=== PATIENT | female | born 1980 | race Caucasian/White ===

== ENCOUNTER 2017-01-27 08:16 | Day surgery (SDC) | payer MEDICAID ==
[~2017-01-27 08:16] MED LIST: ANCEF/STERILE WATER 2 GM/20 ML IV NR; LACTATED RINGERS 1,000 ML IV SCH; PEPCID PO NR; VERSED IV NR
--- NOTE | 2017-01-27 09:24 | Anesthesia Consultation ---
Anesthesia Consult and Med Hx Date of service: 01/27/17 - Airway Anesthetic Teeth Evaluation: Good ROM Head & Neck: Adequate Mental/Hyoid Distance: Adequate Mallampati Class: Class II Intubation Access Assessment: Good - Pulmonary Exam CTA: Yes - Cardiac Exam Cardiac Exam: RRR - Pre-Operative Health Status ASA Pre-Surgery Classification: ASA1 Proposed Anesthetic Plan: General - Pulmonary Hx Smoking: No Hx Sleep Apnea: No (DARYN PRE SCREEN NEGATIVE) - Cardiovascular System Hx Hypertension: No - Other Systems Hx Cancer: No
[2017-01-27] MEDS ORDERED: ZOFRAN IV PRN (09:25)
[2017-01-27] MEDS ORDERED: NORCO 5/325 PO PRN (09:25)
--- NOTE | 2017-01-27 09:25 | Anesthesia Day of Surgery ---
Anesthesia Day of Surgery - Day of Surgery Patient Examined: Yes Patient H&P Reviewed: Yes Patient is NPO: Yes
[2017-01-27] MEDS ORDERED: XYLOCAINE MPF 2% ONE (09:45)
[2017-01-27 09:48] LABS: Hemoglobin 13.9 gm/dl (10.1-14.3)
[2017-01-27] MEDS ORDERED: SUBLIMAZE ONE (09:59)
[2017-01-27] MEDS ORDERED: DIPRIVAN 10 MG/ML IV ONE (09:59)
[2017-01-27] MEDS: DILAUDID IV PRN ×2 (11:03→11:15)
--- NOTE | 2017-01-27 11:51 | Operative Report ---
SERVICE: Plastic surgery. PREOPERATIVE DIAGNOSIS: Benign neoplasm, right upper quadrant of the abdomen, 17 cm. POSTOPERATIVE DIAGNOSIS: Benign neoplasm, right upper quadrant of the abdomen, 17 cm. PROCEDURE: 1. Excision, benign neoplasm of right upper quadrant of abdomen, 17 cm. 2. Complex closure of right abdomen, 12.5 cm. SURGEON: Wiliam Wallace MD ENDOSCOPY SPECIALTY TECHNICIAN: Oni Car CSA. FINDINGS: Large soft tissue tumor comprised of adipose tissue extending down to the fascia, well circumscribed. DESCRIPTION OF PROCEDURE: The patient was brought to the operating room and placed on the table in supine position. Following administration of general anesthesia, the abdomen was prepped with a Betadine solution, draped in usual sterile manner. A #10 blade scalpel was used to make a transverse skin incision overlying the mass, deepened through subcutaneous fat down to the capsule of the tumor, which was circumferentially excised and sent to pathology as specimen. Hemostasis was controlled using electrocautery. A 10-mm Samir drain was placed followed by closure in layers using interrupted and running subcuticular 2-0 Monocryl sutures. Prior to closure, redundant skin was excised from the ends of the incision. Mastisol, Steri-Strips, and sterile dressings applied. The patient tolerated the procedure well and returned to recovery room in stable condition. JOB# [id number] KALPANAW/KIMBERLY VIDES
[2017-01-27 12:18] VITALS: BP 109/67
--- NOTE | 2017-01-27 12:53 | Post Anesthesia Evaluation ---
- Post Anesthesia Evaluation Patient Participated: Yes Airway Patent: Yes Stable Respiratory Function: Yes Temp > 96.8F: Yes Pain Manageable: Yes Adequeate Hydration: Yes Anesthesia Complications: No Block Receding Appropriately: Not Applicable
== END 2017-01-27 12:40 | disposition home or self-care (01) ==
LOC: OR 08:16
PROVIDERS: ATTEND Plastic Surgery
DX: D21.4 Benign neoplasm of connective and other soft tissue of abdomen (principal); Z80.1 Family history of malignant neoplasm of trachea, bronchus and lung; Z82.49 Family history of ischemic heart disease and other diseases of the circulatory system
CPT/HCPCS: 13101; 13102; 22903; 36415; 81025; 85014; 85018; 88304; J0690; J1170; J2250; J2704; J3010; J7120

== ENCOUNTER 2017-03-09 16:05 | Inpatient (IN) | payer MEDICAID ==
[2017-03-09] MEDS ORDERED: ZOSYN/NS 4.5GM/100ML 4.5 GM/100 ML VIAL IV ONE (19:59)
[2017-03-09] MEDS ORDERED: NACL 0.9% 1000 ML 1,000 ML IV ONE (19:59)
[2017-03-09] MEDS ORDERED: VANCOMYCIN/NS 1 GM/250 ML 1 GM/250 ML BAG IV ONE (19:59)
[2017-03-09] MEDS ORDERED: MORPHINE IV ONE (19:59)
--- NOTE | 2017-03-09 20:06 | Emergency Department Report ---
ED Abdominal Pain HPI - General Chief Complaint: Abdominal Pain Stated Complaint: POST SURGERY ISSUES Time Seen by Provider: 03/09/17 19:46 Source: patient Mode of arrival: Ambulatory Limitations: No Limitations - History of Present Illness Initial Comments: Patient is a 36-year-old female presenting to the ER with right-sided abdominal pain and drainage. Patient reports she had a lipoma resected at the end of January and still has a FRANCESCO drain in place. She has seen her surgeon 2-3 times for follow-up patient is still draining greater than 50 mL's of fluid via her FRANCESCO drain. However for the past 2 days she's had increased swelling redness and pus drainage from around the FRANCESCO site. Associated tactile fevers and chills patient has not taken any meds for this and has not seen her surgeon since this has started. Otherwise no headaches, nausea, vomiting, shortness of breath, chest pain, any other pain, travel, or sick contacts. - Related Data Home Medications Medication Instructions Recorded Confirmed Last Taken No Known Home Medications [No 01/21/17 01/21/17 Unknown Reported Home Medications] Allergies Allergy/AdvReac Type Severity Reaction Status Date / Time No Known Allergies Allergy Verified 01/21/17 09:18 ED Review of Systems ROS: Stated complaint: POST SURGERY ISSUES Other details as noted in HPI Comment: All other systems reviewed and negative ED Past Medical Hx - Past Medical History Previous Medical History?: No Hx Hypertension: No - Surgical History Past Surgical History?: Yes Additional Surgical History: Lipoma - Social History Smoking Status: Never Smoker Substance Use Type: None - Medications Home Medications: Home Medications Medication Instructions Recorded Confirmed Last Taken Type No Known Home Medications [No 01/21/17 01/21/17 Unknown History Reported Home Medications] ED Physical Exam - General Limitations: No Limitations General appearance: alert, in no apparent distress - Head Head exam: Present: atraumatic, normocephalic - Eye Eye exam: Present: normal appearance - ENT ENT exam: Present: mucous membranes moist - Neck Neck exam: Present: normal inspection - Respiratory Respiratory exam: Present: normal lung sounds bilaterally. Absent: respiratory distress - Cardiovascular Cardiovascular Exam: Present: regular rate, normal rhythm. Absent: systolic murmur, diastolic murmur, rubs, gallop - GI/Abdominal GI/Abdominal exam: Present: soft, tenderness, other (R sided FRANCESCO drain in place, moderate swelling around the FRANCESCO insertion in the R lateral upper quadrant, pus drainage around the FRANCESCO drain insertion site) - Extremities Exam Extremities exam: Present: normal inspection - Back Exam Back exam: Present: normal inspection - Neurological Exam Neurological exam: Present: alert, oriented X3 - Skin Skin exam: Present: erythema (around the FRANCESCO drain site) ED Course Vital Signs 03/09/17 03/09/17 03/09/17 16:19 22:23 22:33 Temperature 98.5 F 98.3 F Pulse Rate 97 H 78 Respiratory 16 12 Rate Blood Pressure 125/80 110/74 Blood Pressure 128/78 [Left] O2 Sat by Pulse 100 99 Oximetry 03/09/17 03/10/17 03/10/17 22:34 00:25 00:30 Temperature Pulse Rate Respiratory 12 Rate Blood Pressure 111/66 104/69 Blood Pressure [Left] O2 Sat by Pulse 99 Oximetry 03/10/17 03/10/17 00:45 00:54 Temperature 98.3 F Pulse Rate 78 Respiratory 12 Rate Blood Pressure 107/67 Blood Pressure [Left] O2 Sat by Pulse 98 Oximetry ED Medical Decision Making - Lab Data Result diagrams: 03/09/17 20:25 03/09/17 20:25 - Radiology Data Radiology results: report reviewed - Medical Decision Making Ordered vancomycin 1 g IVPB, Zosyn 4.5 g IVPB for suspected cellulitis and possible abscess formation. Patient's CT abdomen and pelvis reviewed there is a large fluid collection in the subcutaneous fat of the right lateral abdominal wall. This measures approximately 11.4 cm in width by 3.7 cm into by 10 point centimeters in length. There is a Frandy-Rodrigez drain present within the fluid collection. Pain scale history and should be verified. The fluid collection could represent an abscess, sterile seroma, or liquefied hematoma. 00:[address] Enedelia beck, he recommends, the FRANCESCO drain be taken out tomorrow and patient go to IR for pigtail catheter. This was relayed to the admitting hospitalist, Dr. Hernadez 0030:Called to the bedside by the nurse, patient had vancomycin going wide open and it was not on a pump. Pt was red in the face and across the chest with complaints of feeling hot and itchy. The vancomycin was slowed down, patient was given benadryl 50mg and solumedrol 125mg IVP. I did discuss with the nurse Davi, that in the future Vancomycin is an antibiotic that MUST be run slowly on the pump to avoid red man syndrome and to truly distinguish this from an allergic reaction. He understood. I evaluated the patient approximately 30 minutes later and her symptoms has resolved. The vancomycin was resumed at its intended rate. Will continue to monitor Critical care attestation.: If time is entered above; I have spent that time in minutes in the direct care of this critically ill patient, excluding procedure time. ED Disposition Clinical Impression: Abdominal wall abscess at site of surgical wound Disposition: OP ADMITTED IP TO THIS HOSP Is pt being admited?: Yes Does the pt Need Aspirin: No Condition: Stable
[2017-03-09] MEDS ORDERED: NACL ONE (20:44)
[2017-03-09 20:51] LABS: Basophils % (Auto) 0.4 % (0.0-1.8); Eosinophils % (Auto) 0.1 % (0.0-4.3); Hematocrit 40.8 % (30.3-42.9); Hemoglobin 13.5 gm/dl (10.1-14.3); Mean Corpuscular HGB Conc 33 % (30-34); Mean Corpuscular Hemoglobin 28 pg (28-32); Mean Corpuscular Volume 84 fl (79-97); Platelet Count 200 K/mm3 (140-440); Red Blood Count 4.87 M/mm3 (3.65-5.03); Red Cell Distribution Width 13.5 % (13.2-15.2); White Blood Count 13.7 K/mm3 (4.5-11.0)
[2017-03-09 21:01] LABS: INR 1.12 (0.87-1.13)
[2017-03-09 21:03] LABS: Alanine Aminotransferase 11 units/L (7-56); Albumin 3.9 g/dL (3.9-5); Albumin/Globulin Ratio 1.3 %; Alkaline Phosphatase 50 units/L (35-129); Anion Gap 14 mmol/L; Bilirubin,Total 0.6 mg/dL (0.1-1.2); Blood Urea Nitrogen 8 mg/dL (7-17); Calcium 9.2 mg/dL (8.4-10.2); Carbon Dioxide 27 mmol/L (22-30); Chloride 97.6 mmol/L (98-107); Glucose 99 mg/dL (65-100); Potassium 4.1 mmol/L (3.6-5.0); Sodium 134 mmol/L (137-145)
[2017-03-09 21:11] LABS: Bilirubin,Direct < 0.2 mg/dL (0-0.2); Bilirubin,Indirect 0.4 mg/dL
[2017-03-09] MEDS ORDERED: MORPHINE ONE (22:11)
--- NOTE | 2017-03-09 23:42 | Cat Scan Report ---
FINAL REPORT PROCEDURE: CT abdomen and pelvis with contrast. TECHNIQUE: Computerized axial tomography of the abdomen and pelvis was performed after the IV injection of iodinated nonionic contrast. HISTORY: Abdominal pain, abscess. COMPARISON: No prior studies are available for comparison. FINDINGS: The lung bases are clear. There are no pleural effusions. The heart size is normal. The liver, spleen and pancreas appear normal. The gallbladder is present. The adrenal glands are not enlarged. Both kidneys appear normal in size and configuration. The abdominal aorta has a normal caliber. There is no retroperitoneal adenopathy. A normal appendix is visible. The bladder, uterus and adnexal regions are unremarkable. There is an IUD within the uterus. There is a large fluid collection in the subcutaneous fat of the right lateral abdominal wall. This measures approximately 11.4 centimeters in width by 3.7 centimeters in depth by 10.7 centimeters in length. There is a Frandy-Rodrigez type drain present within the fluid collection. Patency of this drain should be verified. The fluid collection could represent an abscess, a sterile seroma or a liquefied hematoma. Clinical correlation is recommended. The regional skeleton appears intact. IMPRESSION: Large right lateral abdominal wall fluid collection despite presence of Frandy-Rodrigez drain. Please see above comments.
[2017-03-10] MEDS ORDERED: PEPCID IV ONE (00:23)
[2017-03-10] MEDS ORDERED: BENADRYL ONE (00:24)
[2017-03-10] MEDS ORDERED: BENADRYL IV ONE (00:32)
[2017-03-10] MEDS ORDERED: MILK OF MAGNESIA PO PRN (01:33)
[2017-03-10] MEDS ORDERED: DULCOLAX PR PRN (01:33)
[2017-03-10] MEDS ORDERED: MORPHINE IV PRN (01:33)
[2017-03-10] MEDS ORDERED: ZOFRAN IV PRN (01:33)
[2017-03-10] MEDS ORDERED: TYLENOL PO PRN (01:33)
--- NOTE | 2017-03-10 01:35 | History and Physical Report ---
History of Present Illness Date of examination: 03/10/17 History of present illness: 36-year-old man with a no medical history comes emergency room with complaints of increased drainage from her FRANCESCO tube. Patient is status post resection of a lipoma on January 27, a drain was put in place. He has follow-up with the surgeon who told her to discontinue drain if the drainage was less than 15 ml consecutive days. Yesterday morning she woke up she had increased drainage, she removed more than 60 ml initially, drainage is purulent. Patient developed itching after vancomycin administration, she was given Benadryl and steroids Patient denies chest pain, palpitation, shortness of breath, cough, abdominal pain, hematochezia, dysuria, frequency, focal weakness, dysarthria, fever chills , polydipsia polyuria, hot or cold intolerance, easy bruisability, or rash or bleeding from mucosal membrane, rhinorrhea, epistaxis, earache, tinnitus, blurry vision, eye discharge, anxiety, depression. Other review of systems negative PAST SURGICAL HISTORY: Lipoma resection SOCIAL HISTORY: No alcohol, tobacco, drugs FAMILY HISTORY: Hypertension Medications and Allergies Allergies Allergy/AdvReac Type Severity Reaction Status Date / Time No Known Allergies Allergy Verified 01/21/17 09:18 Home Medications Medication Instructions Recorded Confirmed Last Taken Type No Known Home Medications [No 01/21/17 03/10/17 Unknown History Reported Home Medications] Exam - Physical Exam Narrative exam: Gen. appearance: Patient lying in bed, no apparent distress HEENT: Normocephalic, atraumatic, pupils equally round and reactive to light, extraocular movement intact, and no sclericterus,. No JVD or thyromegaly or nodule,neck supple, no carotid bruit ,mucous membranes moist, no exudate or erythema Heart: S1, S2, regular rate and rhythm Lungs: Clear to auscultation bilaterally, breathing comfortable Abdomen: Positive bowel sounds, nontender, drain in right upper quadrant, and no surrounding erythema ,nondistended, no organomegaly Extremity: No edema, cyanosis, clubbing Skin: No rash, nodules, warm, dry Neuro: Oriented 3, cranial nerves II-12 intact, speech is fluent, motor and sensory intact - Constitutional Vitals: Temp Pulse Resp BP Pulse Ox 98.3 F 78 12 100/63 98 03/10/17 00:54 03/10/17 00:54 03/10/17 00:54 03/10/17 01:15 03/10/17 00:54 Results - Labs CBC & Chem 7: 03/09/17 20:25 03/09/17 20:25 Labs: Abnormal lab results 03/09/17 03/09/17 Range/Units 20:25 20:25 WBC 13.7 H (4.5-11.0) K/mm3 Seg Neutrophils % 74.5 H (40.0-70.0) % Seg Neutrophils # 10.2 H (1.8-7.7) K/mm3 Sodium 134 L (137-145) mmol/L Chloride 97.6 L (98-107) mmol/L Creatinine 0.5 L (0.7-1.2) mg/dL - Imaging and Cardiology CT scan - abdomen: report reviewed CT scan - pelvis: report reviewed Assessment and Plan Possible abscess Status post lipoma resection Admit to medicine status post Zosyn and vancomycin in the emergency room, continue Zosyn Consult interventional radiology for peak tail cath per Dr. Patel, surgeon Start IV morphine, DVT prophylaxis
[2017-03-10] MEDS ORDERED: NACL 0.9% 1000 ML 1,000 ML IV SCH (02:00)
[2017-03-10] MEDS: ZOSYN/NS 4.5GM/100ML 4.5 GM/100 ML VIAL IV SCH ×3 (05:46→18:04)
--- NOTE | 2017-03-10 07:43 | Admit Criteria Form ---
Admission Criteria Documentation: CELLULITIS Clinical Indications for Admission to Inpatient Care (Place 'X' for any and all applicable criteria): Admission is indicated for ANY ONE of the following(1)(2)(3)(4)(5): [ ]I. Limb-threatening infection [ ]II. High-risk comorbid condition as indicated by ANY ONE of the following: [ ]a) Uncontrolled diabetes (eg, HbA1c greater than 10% (0.1)) [ ]b) Cirrhosis [ ]c) Neutropenia [ ]d) Asplenia [ ]e) Immunosuppression [ ]f) Symptomatic heart failure [ ]III. Failure of outpatient therapy as indicated by ALL of the following: [ ]a) Progression or no improvement after adequate trial (minimum of 48 hours, with longer period for stable lower extremity infection) [ ]b) Adequate antibiotic regimen as indicated by use of ANY ONE of the following: [ ]i) First-generation cephalosporin (e.g., cephalexin) [ ]ii) Antistaphylococcal penicillin (e.g., dicloxacillin) [ ]iii) Penicillin-allergic patient regimen (clindamycin, extended-spectrum fluoroquinolone, or doxycycline) [ ]iv) Resistant organism (eg, methicillin-resistant Staphylococcus aureus) regimen (6) [ ]c) Outpatient intravenous therapy regimen is not appropriate due to ANY ONE of the following. (7)(8)(9)(10): [ ]i) It was tried and was not successful (eg, progression of infection). [ ]ii) It is not available or cannot be arranged in a clinically appropriate time frame (e.g., the next day). [ ]iii) Clinical presentation (eg, acuity of infection, rapidity of progression, confirmed or suspected bacteremia) is judged to require ALL of the following: [ ]1) Immediate initiation of intravenous therapy ( eg, cannot wait for next day) [ ]2) Intensity of patient monitoring and observation (eg, vital sign measurement, checks for infection progression) that cannot be provided at other than inpatient level of care [ ]IV. Mental status changes [ ]V. Bacteremia [ ]. Hemodynamic instability [ ]VII. Suspected necrotizing soft tissue infection (e.g., gas in tissue)(11)( 12) [ ]VIII. Orbital infection (13)(14) [X]IX. Associated surgical procedure (e.g., abscess drainage, debridement) not amenable to outpatient, emergency department, or observation care [ ]X. Cutaneous gangrene [ ]XI. High fever (temperature greater than 39.5 degrees C (103.1 degrees F) (oral)) not responsive to outpatient, emergency department, or observation care therapy [ ]XIII. Inpatient admission required rather than observation care (Also use Cellulitis: Observation Care as appropriate) because of ANY ONE of the following : [ ]a) Periorbital or perineal infection that is severe or worsening [ ]b) Severe pain requiring acute inpatient management [ ]c) IV fluid to replace significant ongoing (e.g., for over 24 hours) losses (greater than 3L/m2 per day) [ ]d) Compartment syndrome monitoring (17) [ ]e) Strict or protective (eg, laminar flow) isolation [ ]f) Urgent debridement or skin grafting [ ]g) Bone or joint debridement [ ]h) Immediate inpatient surgery [ ]i) Other condition, treatment or monitoring requiring inpatient admission Extended stay beyond goal length of stay may be needed for (1)(18): [ ]a) Necrotizing soft tissue infection or fasciitis [ ]b) Gram-negative infection [ ]c) Methicillin-resistant Staphylococcal aureus (MRSA) infection [ ]d) Peripheral venous insufficiency with cellulitis [ ]e) Extensive edema [ ]f) Sepsis or continued Hemodynamic instability [ ]g) Continued high fever or mental status change [ ]h) Bacteremia [ ]i) Active serious comorbid conditions ( eg, heart failure, renal insufficiency) The original [employer] content created by [employer] has been revised. The portions of the content which have been revised are identified through the use of italic text or in bold, and [facility] has neither reviewed nor approved the modified material. All other unmodified content is copyright [facility] Please see references footnoted in the original [facility] edition 2016 Admission Criteria Met: Yes
--- NOTE | 2017-03-10 10:07 | Progress Note ---
Assessment and Plan Assessment and plan: Pus discharge from the PJ tube S/P lipoma removal Subcutaneous abscess - Continue IV Zosyn - IR consulted for PEG tail placement prophylaxis - lovenox Disposition - continue inpatient care History Interval history: Patient stated she has discharge from the PJ tube. Hospitalist Physical - Physical exam Narrative exam: Not in cardiopulmonary distress. The patient appeared well nourished and normally developed. Vital signs as documented. Head exam is unremarkable. No scleral icterus . Neck is without jugular venous distension, thyromegaly, or carotid bruits. Lungs are clear to auscultation. Cardiac exam reveals regular rate and Rhythm. First and second heart sounds normal. No murmurs, rubs or gallops. Abdominal exam reveals clean dressing on the right flank area with a J-tube in place and some discharge. Extremities are nonedematous and both femoral and pedal pulses are normal. 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 No focal weakness. - Constitutional Vitals: Temp Pulse Resp BP Pulse Ox 98.6 F 78 18 96/61 96 03/10/17 04:00 03/10/17 04:00 03/10/17 04:00 03/10/17 04:00 03/10/17 04:00 Results - Labs CBC & Chem 7: 03/09/17 20:25 03/09/17 20:25 Labs: Laboratory Last Values WBC 13.7 K/mm3 (4.5-11.0) H 03/09/17 20:25 RBC 4.87 M/mm3 (3.65-5.03) 03/09/17 20:25 Hgb 13.5 gm/dl (10.1-14.3) 03/09/17 20:25 Hct 40.8 % (30.3-42.9) 03/09/17 20:25 MCV 84 fl (79-97) 03/09/17 20:25 MCH 28 pg (28-32) 03/09/17 20:25 MCHC 33 % (30-34) 03/09/17 20:25 RDW 13.5 % (13.2-15.2) 03/09/17 20:25 Plt Count 200 K/mm3 (140-440) 03/09/17 20:25 Lymph % (Auto) 18.8 % (13.4-35.0) 03/09/17 20:25 [place] % (Auto) 6.2 % (0.0-7.3) 03/09/17 20:25 Eos % (Auto) 0.1 % (0.0-4.3) 03/09/17 20:25 Baso % (Auto) 0.4 % (0.0-1.8) 03/09/17 20:25 Lymph # 2.6 K/mm3 (1.2-5.4) 03/09/17 20:25 [place] # 0.8 K/mm3 (0.0-0.8) 03/09/17 20:25 Eos # 0.0 K/mm3 (0.0-0.4) 03/09/17 20:25 Baso # 0.1 K/mm3 (0.0-0.1) 03/09/17 20:25 Seg Neutrophils % 74.5 % (40.0-70.0) H 03/09/17 20:25 Seg Neutrophils # 10.2 K/mm3 (1.8-7.7) H 03/09/17 20:25 PT 14.3 Sec. (12.2-14.9) 03/09/17 20:25 INR 1.12 (0.87-1.13) 03/09/17 20:25 Sodium 134 mmol/L (137-145) L 03/09/17 20:25 Potassium 4.1 mmol/L (3.6-5.0) 03/09/17 20:25 Chloride 97.6 mmol/L (98-107) L 03/09/17 20:25 Carbon Dioxide 27 mmol/L (22-30) 03/09/17 20:25 Anion Gap 14 mmol/L 03/09/17 20:25 BUN 8 mg/dL (7-17) 03/09/17 20:25 Creatinine 0.5 mg/dL (0.7-1.2) L 03/09/17 20:25 Estimated GFR > 60 ml/min 03/09/17 20:25 BUN/Creatinine Ratio 16.00 % 03/09/17 20:25 Glucose 99 mg/dL (65-100) 03/09/17 20:25 Calcium 9.2 mg/dL (8.4-10.2) 03/09/17 20:25 Total Bilirubin 0.6 mg/dL (0.1-1.2) 03/09/17 20:25 Direct Bilirubin < 0.2 mg/dL (0-0.2) 03/09/17 20:25 Indirect Bilirubin 0.4 mg/dL 03/09/17 20:25 AST 16 units/L (5-40) 03/09/17 20:25 ALT 11 units/L (7-56) 03/09/17 20:25 Alkaline Phosphatase 50 units/L (35-129) 03/09/17 20:25 Total Protein 7.0 g/dL (6.3-8.2) 03/09/17 20:25 Albumin 3.9 g/dL (3.9-5) 03/09/17 20:25 Albumin/Globulin Ratio 1.3 % 03/09/17 20:25 HCG, Qual Negative (Negative) 03/09/17 20:25
[2017-03-10] MEDS: LOVENOX SUB-Q SCH (10:42)
[2017-03-10] MEDS ORDERED: NACL 0.9% 500 ML IR ONE (12:28)
[2017-03-10] MEDS ORDERED: XYLOCAINE 2% INFILTRATI ONE (12:29)
[2017-03-10] MEDS ORDERED: ANCEF/STERILE WATER 2 GM/20 ML 2 GM/20 ML SYRINGE IV ONE (12:29)
[2017-03-10] MEDS: VERSED ONE ×2 (12:36→12:40)
[2017-03-10] MEDS: SUBLIMAZE ONE ×2 (12:37→12:40)
--- NOTE | 2017-03-10 13:52 | Operative Report ---
Operative Report Operative Report: EXAM: FLUOROSCOPIC GUIDED EVALUATION OF DRAINAGE CATHETER, DRAINAGE CATHETER EXCHANGE CLINICAL INDICATION: PATIENT WITH DECREASED DRAINAGE OUTPUT, FRANCESCO DRAIN IS RETRACTED OUT OF FLUID COLLECTION DATE: 03/10/2017 PROCEDURE: Following an explanation of the risks, benefits and alternatives; written informed consent was obtained. The patient was brought to the angiographic suite and placed in supine position at the examination table. Initial fluoroscopic evaluation demonstrates partial retraction of the drainage catheter. The side holes were external to the patient. The patient's right flank and indwelling drainage catheter were prepped and draped in the usual sterile fashion. 1% lidocaine was used for anesthesia at the catheter entrance site. The catheter was cut and a 0.035 Marcial guidewire advanced through the catheter and coiled within the fluid collection. The remaining catheter was then removed intact. A new 16 Thai drainage catheter was then advanced over the guidewire and positioned to position the pigtail within the central aspect of the fluid collection. The guidewire was removed. A minimal amount of serosanguineous fluid was aspirated. The catheter was manipulated throughout the fluid collection and only 5-10 mL's of additional fluid is able to be aspirated. Contrast was injected to document appropriate positioning area The catheter was securely fastened of the skin surface using 2-0 Ethilon suture and a stay fixed device. A sterile dressing was then applied. The catheter was placed to FRACNESCO drainage. The patient tolerated the procedure well. There were no immediate post procedure complications. Conscious sedation was performed under the guidance of radiologic nursing. Continuous cardiopulmonary monitoring was utilized. IMPRESSION: 1) Fluoroscopic guided evaluation of drainage catheter, drainage catheter exchange. 2) Drain with only minimal serosanguineous drainage. A component of the fluid collection demonstrated on CT is likely resolving hematoma. We'll allow the catheter to drain for 1 week and then remove it.
--- NOTE | 2017-03-10 13:52 | Event Note ---
Date: 03/10/17 Okay to discharge patient home from a drainage standpoint. She will follow-up in our office in one week for drainage catheter removal.
[2017-03-11] MEDS: ZOSYN/NS 4.5GM/100ML 4.5 GM/100 ML VIAL IV SCH ×3 (00:05→12:48)
[2017-03-11 05:41] LABS: Basophils % (Auto) 0.1 % (0.0-1.8); Hematocrit 35.9 % (30.3-42.9); Hemoglobin 11.8 gm/dl (10.1-14.3); Mean Corpuscular HGB Conc 33 % (30-34); Mean Corpuscular Hemoglobin 28 pg (28-32); Mean Corpuscular Volume 85 fl (79-97); Platelet Count 197 K/mm3 (140-440); Red Blood Count 4.22 M/mm3 (3.65-5.03); Red Cell Distribution Width 13.2 % (13.2-15.2); White Blood Count 13.5 K/mm3 (4.5-11.0)
[2017-03-11 05:52] LABS: Anion Gap 15 mmol/L; Blood Urea Nitrogen 9 mg/dL (7-17); Calcium 8.3 mg/dL (8.4-10.2); Carbon Dioxide 26 mmol/L (22-30); Chloride 106.3 mmol/L (98-107); Glucose 115 mg/dL (65-100); Potassium 3.8 mmol/L (3.6-5.0); Sodium 143 mmol/L (137-145)
[2017-03-11 08:05] VITALS: BP 98/57
--- NOTE | 2017-03-11 09:12 | Progress Note ---
Assessment and Plan Assessment and plan: Pus discharge from the Francesco tube sp FRANCESCO tube exchange yesterday, to be left for a week and then removed as per IR S/P lipoma removal Subcutaneous abscess - Continue IV Zosyn - IR consulted for PEG tail placement prophylaxis - lovenox Disposition - continue inpatient care Hospitalist Physical - Constitutional Vitals: Temp Pulse Resp BP Pulse Ox 97.7 F 80 14 98/57 98 03/11/17 08:00 03/11/17 08:00 03/11/17 08:00 03/11/17 08:00 03/11/17 08:00 Results - Labs CBC & Chem 7: 03/11/17 04:50 03/11/17 04:50 Labs: Laboratory Last Values WBC 13.5 K/mm3 (4.5-11.0) H 03/11/17 04:50 RBC 4.22 M/mm3 (3.65-5.03) 03/11/17 04:50 Hgb 11.8 gm/dl (10.1-14.3) 03/11/17 04:50 Hct 35.9 % (30.3-42.9) 03/11/17 04:50 MCV 85 fl (79-97) 03/11/17 04:50 MCH 28 pg (28-32) 03/11/17 04:50 MCHC 33 % (30-34) 03/11/17 04:50 RDW 13.2 % (13.2-15.2) 03/11/17 04:50 Plt Count 197 K/mm3 (140-440) 03/11/17 04:50 Lymph % (Auto) 14.3 % (13.4-35.0) 03/11/17 04:50 Teller % (Auto) 5.8 % (0.0-7.3) 03/11/17 04:50 Eos % (Auto) 0.0 % (0.0-4.3) 03/11/17 04:50 Baso % (Auto) 0.1 % (0.0-1.8) 03/11/17 04:50 Lymph # 1.9 K/mm3 (1.2-5.4) 03/11/17 04:50 Teller # 0.8 K/mm3 (0.0-0.8) 03/11/17 04:50 Eos # 0.0 K/mm3 (0.0-0.4) 03/11/17 04:50 Baso # 0.0 K/mm3 (0.0-0.1) 03/11/17 04:50 Seg Neutrophils % 79.8 % (40.0-70.0) H 03/11/17 04:50 Seg Neutrophils # 10.8 K/mm3 (1.8-7.7) H 03/11/17 04:50 PT 14.3 Sec. (12.2-14.9) 03/09/17 20:25 INR 1.12 (0.87-1.13) 03/09/17 20:25 Sodium 143 mmol/L (137-145) D 03/11/17 04:50 Potassium 3.8 mmol/L (3.6-5.0) 03/11/17 04:50 Chloride 106.3 mmol/L (98-107) 03/11/17 04:50 Carbon Dioxide 26 mmol/L (22-30) 03/11/17 04:50 Anion Gap 15 mmol/L 03/11/17 04:50 BUN 9 mg/dL (7-17) 03/11/17 04:50 Creatinine 0.5 mg/dL (0.7-1.2) L 03/11/17 04:50 Estimated GFR > 60 ml/min 03/11/17 04:50 BUN/Creatinine Ratio 18.00 % 03/11/17 04:50 Glucose 115 mg/dL (65-100) H 03/11/17 04:50 Calcium 8.3 mg/dL (8.4-10.2) L 03/11/17 04:50 Total Bilirubin 0.6 mg/dL (0.1-1.2) 03/09/17 20:25 Direct Bilirubin < 0.2 mg/dL (0-0.2) 03/09/17 20:25 Indirect Bilirubin 0.4 mg/dL 03/09/17 20:25 AST 16 units/L (5-40) 03/09/17 20:25 ALT 11 units/L (7-56) 03/09/17 20:25 Alkaline Phosphatase 50 units/L (35-129) 03/09/17 20:25 Total Protein 7.0 g/dL (6.3-8.2) 03/09/17 20:25 Albumin 3.9 g/dL (3.9-5) 03/09/17 20:25 Albumin/Globulin Ratio 1.3 % 03/09/17 20:25 HCG, Qual Negative (Negative) 03/09/17 20:25
--- NOTE | 2017-03-11 09:20 | Discharge Summary ---
Providers - Providers Date of Admission: 03/10/17 01:33 Attending physician: CODY SANCHEZ MD Primary care physician: INSPECTOR Hospitalization Condition: Stable Hospital course: 36-year-old woman with a history of recent lipoma removal about a month ago who presented with decreased discharge from her FRANCESCO drain. She was seen by interventional radiology, and she had FRANCESCO drain exchange, she is to follow up with interventional radiology within 1-2 weeks of discharge for ultimate removal of the drain, imaging was consistent with remnants of intra-abdominal hematoma. Discharge diagnoses Intra-abdominal wall hematoma Abdominal FRANCESCO malfunction Disposition: DISCHARGED TO HOME OR SELFCARE Time spent for discharge: 35 minutes Core Measure Documentation - Palliative Care Palliative Care/ Comfort Measures: Not Applicable - Core Measures Any of the following diagnoses?: none Exam - Constitutional Vitals: Temp Pulse Resp BP Pulse Ox 97.7 F 80 14 98/57 98 03/11/17 08:00 03/11/17 08:00 03/11/17 08:00 03/11/17 08:00 03/11/17 08:00 General appearance: Present: no acute distress, well-nourished - EENT Eyes: Present: PERRL ENT: hearing intact, clear oral mucosa - Neck Neck: Present: supple, normal ROM - Respiratory Respiratory effort: normal Respiratory: bilateral: CTA - Cardiovascular Heart Sounds: Present: S1 & S2. Absent: rub, click - Extremities Extremities: pulses symmetrical, No edema Peripheral Pulses: within normal limits - Abdominal General gastrointestinal: Present: soft, non-tender, non-distended, normal bowel sounds Female genitourinary: Present: normal - Integumentary Integumentary: Present: clear, warm, dry - Musculoskeletal Musculoskeletal: gait normal, strength equal bilaterally - Psychiatric Psychiatric: appropriate mood/affect, intact judgment & insight - Neurologic Neurologic: CNII-XII intact, moves all extremities Plan Follow up with: SUSAN ROMERO MD [Primary Care Provider] - 3-5 Days MARIBEL PORTILLO MD [Staff Physician] - 7 Days
[2017-03-11] MEDS: LOVENOX SUB-Q SCH (10:28)
== END 2017-03-11 17:40 | disposition home or self-care (01) | DRG 920 ==
LOC: ED 16:05 → 2B-SURG 03-10 01:33
PROVIDERS: ADMIT Internal Medicine; ATTEND Internal Medicine
PROC: 0W9F30Z Drainage of Abdominal Wall with Drainage Device, Percutaneous Approach (ICD-10-PCS; principal; 2017-03-10)
DX: T85.518A Breakdown (mechanical) of other gastrointestinal prosthetic devices, implants and grafts, initial encounter (principal); L02.91 Cutaneous abscess, unspecified; L03.311 Cellulitis of abdominal wall; Y83.8 Other surgical procedures as the cause of abnormal reaction of the patient, or of later complication, without mention of misadventure at the time of the procedure; Z82.49 Family history of ischemic heart disease and other diseases of the circulatory system
CPT/HCPCS: 36415; 49423; 74177; 80048; 80074; 84703; 85025; 85610; 96374; 96375; C1729; C1751; C1769; J0690; J1200; J1650; J2250; J2270; J2543; J2930; J3010; J3370; J7030; Q9967

== ENCOUNTER 2017-03-20 10:19 | Day surgery (SDC) | payer MEDICAID ==
[2017-03-20] MEDS ORDERED: VERSED ONE ×2 (12:30→13:19)
[2017-03-20] MEDS ORDERED: SUBLIMAZE ONE ×2 (12:30→13:19)
[2017-03-20] MEDS ORDERED: NACL 0.9% 500 ML 500 ML ONE (12:58)
[2017-03-20] MEDS ORDERED: ANCEF/STERILE WATER 2 GM/20 ML 2 GM/20 ML SYRINGE IV ONE (13:08)
[2017-03-20] MEDS ORDERED: NACL 0.9% 500 ML IR ONE (13:08)
[2017-03-20] MEDS ORDERED: XYLOCAINE 1%/ EPI 1:100,000 INFILTRATI ONE (13:08)
--- NOTE | 2017-03-20 13:46 | Operative Report ---
Operative Report Operative Report: Procedure: Drainage catheter check and removal History/Indication: This patient is a 36-year-old female with a history of hematoma formation after removal of a large right flank lipoma. She initially had a FRANCESCO drain in, which was recently changed for a 16 [place] pigtail drainage catheter. She returns today for a drain check. She states that drainage has been slowly decreasing every day, with approximately 50 mL of clear yellow drainage yesterday. Impression: 1. Contrast injection via the existing drainage catheter demonstrates no significant residual cavity. 2. The indwelling drainage catheter was successfully removed. Physician: Blanca De La Cruz MD Technique/Procedural Details: Informed consent was obtained. The patient was placed in the supine position on the procedure table. A timeout was performed, and the patient was prepped and draped in the usual sterile fashion. Initial keg filler image was acquired. Contrast was injected through the indwelling drainage catheter and an image was acquired. Based on the images, it was determined that further evaluation of the cavity was required. Local anesthetic was given around the catheter exit site. The sutures were cut along with the drain, and the drain was removed over a Marcial wire. A short vertebral catheter was advanced over the Marcial wire into the cavity, and contrast was injected as the catheter was slowly retracted. The catheter was retracted completely, and a final image was acquired. Sterile dressings were placed, and the patient was transferred off the table in good condition. Discussion: The indwelling catheter site holes were clogged with debris, raising concern for an occluded catheter. The catheter was exchanged for a vertebral catheter in order to examine the residual cavity. Contrast injection into the vertebral catheter demonstrated no significant residual cavity. As such, no new drain was placed or exchanged. Specimen: none EBL: none
[2017-03-20 14:25] VITALS: BP 99/57
== END 2017-03-20 14:30 | disposition home or self-care (01) ==
LOC: OPU 10:19
PROVIDERS: ATTEND Radiology Diagnostic Radiology
DX: T85.898A Other specified complication of other internal prosthetic devices, implants and grafts, initial encounter (principal); Y83.8 Other surgical procedures as the cause of abnormal reaction of the patient, or of later complication, without mention of misadventure at the time of the procedure
CPT/HCPCS: 47537; C1751; C1769; J0690; J2250; J3010; J7040; Q9967